=== PATIENT | male | born 1950 | race Caucasian/White ===

== ENCOUNTER 2022-12-29 12:09 | Day surgery (SDC) | payer MEDICARE, SELFPAY ==
--- NOTE | 2022-12-29 12:19 | PM.OP.COLON ---
Operative Date/Time/Diagnoses Date of procedure: 12/29/22 Pre-op diagnosis: See indication and findings Procedure & Clinicians Study performed: Colonoscopy Indications: History of colon polyps Surgeon: Cici Serrano Procedure Notes Procedure in detail: After informed consent was obtained the patient was placed in left lateral decubitus position. Video colonoscope was introduced the rectum slowly advanced cecum. Preparation was good. On slow withdrawal mucosa was carefully examined. The scope was removed. The patient tolerated procedure well. Blood loss none Complications none Sedation mac Findings 1. Normal colonoscopy to cecum Mr. Parker should have a follow-up colonoscopy in 7 years
[2022-12-29] MEDS: LACTATED RINGERS 1,000 ML 100 ML IV (12:55)
[2022-12-29 12:56] VITALS: BP 124/84; PULSE 72; RESP 16; TEMP 36.4; BMI 28.7
[2022-12-29 13:31] VITALS: BP 98/68; PULSE 68; RESP 12; O2SAT 95
[2022-12-29 13:36] VITALS: BP 97/71; PULSE 67; RESP 14; O2SAT 90
[2022-12-29 13:42] VITALS: BP 112/74; PULSE 68; RESP 14; O2SAT 94
[2022-12-29 13:47] VITALS: BP 111/72; PULSE 66; RESP 12; O2SAT 97
--- NOTE | 2023-01-19 11:46 | PM.CN ---
History of Present Illness Consult details Date Patient Seen: 12/29/22 Chief complaint: Colonoscopy Meds Home Medications and Allergies Home Medications Medication Instructions Recorded Confirmed Type allopurinol 300 mg PO DAILY 12/29/22 12/29/22 History losartan 100 1 tab PO DAILY 12/29/22 12/29/22 History mg-hydrochlorothiazide 25 mg tablet Allergies Allergy/AdvReac Type Severity Reaction Status Date / Time Penicillins Allergy Intermediate Swelling Verified 12/29/22 12:50 of Lip/Tongue/Throat Exam Vital Signs (past 8 hours): Oxygen Delivery Method Room Air Narrative Exam Narrative: Oropharynx free of lesions Chest clear to auscultation percussion Cardiac exam reveals no S3 or murmur PFSH Social History household members: spouse Tobacco & Substance Use Smoking Status: Never smoker alcohol intake: current Assessment & Plan Assessment & Plan narrative: History of colon polyps 8 years ago need for follow-up colonoscopy. Risks, benefits, alternatives have been explained.
--- NOTE | 2023-03-09 10:43 | PM.HP.1 ---
History of Present Illness History of Present Illness Date Patient Seen: 01/12/23 Chief complaint: Colonoscopy Narrative: History of colon polyps PFSH Social History household members: spouse Smoking Status: Never smoker alcohol intake: current Meds Home Medications and Allergies Home Medications Medication Instructions Recorded Confirmed Type allopurinol 300 mg PO DAILY 12/29/22 12/29/22 History losartan 100 1 tab PO DAILY 12/29/22 12/29/22 History mg-hydrochlorothiazide 25 mg tablet Allergies Allergy/AdvReac Type Severity Reaction Status Date / Time Penicillins Allergy Intermediate Swelling Verified 12/29/22 12:50 of Lip/Tongue/Throat Exam Vital Signs (past 8 hours): Oxygen Delivery Method Room Air Narrative Exam Narrative: Oropharynx free of lesions Chest clear to auscultation percussion Cardiac exam reveals no S3 or murmur Assessment & Plan Assessment & Plan narrative: History of colon polyps need for follow-up colonoscopy. Risks, benefits, alternatives have been explained.
== END 2022-12-29 14:00 | disposition home or self-care (01) ==
PROVIDERS: PCP Registered Nurse; Referring Provider Internal Medicine Gastroenterology; Visit Provider Internal Medicine Gastroenterology
PROC: 0DJD8ZZ Inspection of Lower Intestinal Tract, Via Natural or Artificial Opening Endoscopic (ICD-10-PCS; CPT 45378; principal; 2022-12-29 13:30)
DX: Z12.11 Encounter for screening for malignant neoplasm of colon (principal); Z86.010 Personal history of colon polyps
CPT/HCPCS: G0105; J2704